=== PATIENT | male | born 1975 | race Caucasian/White ===

== ENCOUNTER 2018-08-08 09:28 | Inpatient (IN) | payer OTHER ==
[~2018-08-08] VITALS: Ht 188 cm; Wt 109.8 kg
[2018-08-08 09:35] VITALS: Ht 188 cm; Wt 109.8 kg
[2018-08-08 11:34] LABS: PLATELET COUNT 284 x10^3mcL (130-400); RED CELL DISTRIBUTION WIDTH 13.3 % (11.5-14.5)
[2018-08-08 11:45] LABS: BASOPHIL % 0 % (0-2)
[2018-08-08 11:52] LABS: CALCIUM 8.7 mg/dL (8.5-10.1); CARBON DIOXIDE 30.9 mmol/L (21-32); CREATININE SERUM 1.4 mg/dL (0.7-1.3); POTASSIUM SERUM 3.5 mmol/L (3.5-5.1)
[2018-08-08 11:56] LABS: BILIRUBIN TOTAL 1.6 mg/dL (0.20-1.00)
[2018-08-08 12:12] LABS: ALBUMIN 2.6 g/dL (3.4-5.0); TOTAL PROTEIN, SERUM 8.3 g/dL (6.4-8.2)
[2018-08-08] MEDS ORDERED: DILAUDID4 MG JT (12:27)
[2018-08-08] MEDS ORDERED: PROMETHAZI6.25 MG/5 JT (12:28)
[2018-08-08] MEDS ORDERED: AMBIEN10 MG JT (12:29)
[2018-08-08 14:20] LABS: T3 TOTAL 0.96 ng/mL
[2018-08-08 14:48] LABS: FREE T4 1.14 ng/dL (0.76-1.46); FREE THYROXINE INDEX 2.4 ug/dL (1.4-4.5); T4(THYROXINE) 7.3 ug/dL (4.7-13.3)
[2018-08-08 14:55] VITALS: BP 125/62
[2018-08-08 16:25] LABS: MAGNESIUM 2.4 mg/dL (1.8-2.4); PHOSPHOROUS 2.8 mg/dL (2.5-4.9)
[2018-08-08 16:48] LABS: CHOLESTEROL/HDL RATIO 9.6
[2018-08-08 21:00] VITALS: BP 111/63
[2018-08-08 21:31] VITALS: BP 111/63
[2018-08-09 01:34] LABS: UA SPECIFIC GRAVITY <=1.005 (1.005-1.035); microscopic required? YES; urine erythrocyte 1+ (NEGATIVE)
[2018-08-09 02:04] LABS: AMPHETAMINE QUAL UR NONE DETECTED (See below)
[2018-08-09 06:34] VITALS: BP 123/72
[2018-08-09 08:19] LABS: BASOPHIL % 0.1 % (0-2); PLATELET COUNT 311 x10^3mcL (130-400); RED CELL DISTRIBUTION WIDTH 13.5 % (11.5-14.5)
[2018-08-09 08:33] LABS: CALCIUM 8.2 mg/dL (8.5-10.1); CARBON DIOXIDE 26.6 mmol/L (21-32); CHLORIDE SERUM 100 mmol/L (98-107); CREATININE SERUM 1.1 mg/dL (0.7-1.3); GFR1 > 60 mL/min; GLUCOSE SERUM 104 mg/dL (74-106); POTASSIUM SERUM 3.3 mmol/L (3.5-5.1); SODIUM SERUM 135 mmol/L (136-145)
[2018-08-09 09:11] VITALS: BP 119/67
[2018-08-09 16:43] VITALS: BP 110/66
[2018-08-09 18:48] VITALS: BP 125/62
[2018-08-09 20:51] VITALS: BP 119/71
[2018-08-10 05:42] VITALS: BP 107/65
[2018-08-10 06:58] LABS: BASOPHIL % 0.1 % (0-2); PLATELET COUNT 370 x10^3mcL (130-400); RED CELL DISTRIBUTION WIDTH 14.5 % (11.5-14.5)
[2018-08-10 07:31] LABS: CALCIUM 8.5 mg/dL (8.5-10.1); CHLORIDE SERUM 105 mmol/L (98-107); GFR1 > 60 mL/min; GLUCOSE SERUM 132 mg/dL (74-106); POTASSIUM SERUM 3.5 mmol/L (3.5-5.1); SODIUM SERUM 144 mmol/L (136-145)
[2018-08-10 08:20] VITALS: BP 111/57
[2018-08-10 15:28] VITALS: BP 112/58
[2018-08-10 21:04] VITALS: BP 140/56
[2018-08-11 05:44] VITALS: BP 118/61
[2018-08-11 07:10] LABS: CALCIUM 8.2 mg/dL (8.5-10.1); CARBON DIOXIDE 28.7 mmol/L (21-32); CHLORIDE SERUM 102 mmol/L (98-107); CREATININE SERUM 1.1 mg/dL (0.7-1.3); GFR1 > 60 mL/min; GLUCOSE SERUM 101 mg/dL (74-106); SODIUM SERUM 138 mmol/L (136-145)
[2018-08-11 07:12] LABS: BASOPHIL % 0.3 % (0-2); RED CELL DISTRIBUTION WIDTH 14.3 % (11.5-14.5)
[2018-08-11 07:28] LABS: PLATELET COUNT 412 x10^3mcL (130-400)
[2018-08-11 09:48] VITALS: BP 130/72
[2018-08-11 16:54] VITALS: BP 114/63
[2018-08-11 21:26] VITALS: BP 128/70
[2018-08-12 05:47] VITALS: BP 113/67
[2018-08-12 06:43] LABS: BASOPHIL % 0.3 % (0-2); RED CELL DISTRIBUTION WIDTH 14.4 % (11.5-14.5)
[2018-08-12 06:52] LABS: PLATELET COUNT 468 x10^3mcL (130-400)
[2018-08-12 07:21] LABS: CALCIUM 8.4 mg/dL (8.5-10.1); CARBON DIOXIDE 28.7 mmol/L (21-32); CHLORIDE SERUM 103 mmol/L (98-107); GFR1 > 60 mL/min; GLUCOSE SERUM 99 mg/dL (74-106); MAGNESIUM 2.2 mg/dL (1.8-2.4); PHOSPHOROUS 4.1 mg/dL (2.5-4.9); SODIUM SERUM 138 mmol/L (136-145)
[2018-08-12 09:30] VITALS: BP 123/71
[2018-08-12 09:55] VITALS: BP 123/71
[2018-08-12 17:19] VITALS: BP 118/66
[2018-08-12 17:27] VITALS: BP 118/66
[2018-08-12] MEDS ORDERED: VANCO 1 GR1 GM/150 M IV (17:37)
[2018-08-12] MEDS ORDERED: TAM75 PO (17:37)
== END 2018-08-12 20:19 | disposition short-term general hospital (02) | DRG 177 ==
LOC: ED 09:28 → MU 13:22
PROVIDERS: Internal Medicine; Specialist; ADMIT Internal Medicine
PROC: 0BBB8ZX Excision of Left Lower Lobe Bronchus, Via Natural or Artificial Opening Endoscopic, Diagnostic (ICD-10-PCS; 2018-08-09)
PROC: 0B998ZZ Drainage of Lingula Bronchus, Via Natural or Artificial Opening Endoscopic (ICD-10-PCS; 2018-08-09)
PROC: 0B9B8ZZ Drainage of Left Lower Lobe Bronchus, Via Natural or Artificial Opening Endoscopic (ICD-10-PCS; 2018-08-09)
PROC: 0BB98ZX Excision of Lingula Bronchus, Via Natural or Artificial Opening Endoscopic, Diagnostic (ICD-10-PCS; principal; 2018-08-09 10:00)
DX: J69.0 Pneumonitis due to inhalation of food and vomit (principal); N17.0 Acute kidney failure with tubular necrosis; E43 Unspecified severe protein-calorie malnutrition; E87.1 Hypo-osmolality and hyponatremia; J10.1 Influenza due to other identified influenza virus with other respiratory manifestations; R73.03 Prediabetes; E66.9 Obesity, unspecified; R91.8 Other nonspecific abnormal finding of lung field; E87.6 Hypokalemia; R74.0 Nonspecific elevation of levels of transaminase and lactic acid dehydrogenase [LDH]; Z68.31 Body mass index [BMI] 31.0-31.9, adult; Z87.891 Personal history of nicotine dependence
CPT/HCPCS: 83880; 84439; 87804; 94150; J0456; J0696; J2405; J2543; J3370; J7030; J7070; J7620; Q9967